=== PATIENT | male | born 1945 | race Caucasian/White ===

== ENCOUNTER → 2024-06-24 13:27 | Outpatient (CLI) | payer OTHER, SELFPAY ==
--- NOTE | 2024-06-24 13:38 | DI.ECHO.S_ITS ---
[place] [facility]+ [facility] : : [address] : : [place] : : [id number] : : Phone: [phone] Echocardiogram Report + + :Name: AKILAH HANDLEY Study Date: 06/24/2024 Height: 67 in : :[facility] ReadingLocation: Weight: 170 lb : : Gender: Male BSA: 1.9 m2 : :: 1945 Age: 78 yrs BP: 129/78 mmHg: :Reason For Study: ISCHEMIC HEART DISEASE : :Ordering Physician: JANNA, : :MAREN Performed By: Alejandro Valdivia : :Referring: MAREN SALDIVAR : + + Interpretation Summary Left ventricular wall thickness is mildly increased. The ejection fraction is estimated to be 65-70%. Grade II diastolic dysfunction. The left atrium is mildly dilated. The right ventricle is normal in size and function. There is mild mitral regurgitation. There is a well-seated, normal functioning bioprosthetic aortic valve with a mild paravalvular leak. Pulmonary artery pressures cannot be estimated because of the lack of a measurable TR jet velocity but the IVC suggests a CVP of around 3 mmHg. Procedure: A two-dimensional transthoracic echocardiogram with color flow and Doppler was performed. The study quality was technically adequate. There is no prior echocardiogram noted for this patient. The patient was in normal sinus rhythm during the exam. Left Ventricle: The left ventricle is normal in size. Left ventricular wall thickness is mildly increased. Left ventricular systolic function is normal. The ejection fraction is estimated to be 65-70%. There are no focal wall motion abnormalities. Diastolic parameters suggest a pseudonormalization pattern, consistent with probable elevated filling pressures. Right Ventricle: The right ventricle is normal in size and function. Atria: The left atrium is mildly dilated. The right atrium is normal in size. There is no Doppler evidence for an atrial septal defect. Mitral Valve: There is mild mitral annular calcification. The mitral valve leaflets appear mildly thickened, but open well. The mitral valve leaflets are moderately calcified. No significant mitral valve stenosis. There is mild mitral regurgitation. Aortic Valve: There is a bioprosthetic aortic valve. The prosthetic aortic valve is well-seated. There is mild perivalvular regurgitation around the prosthetic aortic valve. The peak aortic velocity is 2.2 m/sec. The aortic valve mean gradient is 10 mmHg. Tricuspid Valve: The tricuspid valve leaflets are thin and pliable. There is trace tricuspid regurgitation. Pulmonary artery pressures cannot be estimated because of the lack of a measurable TR jet velocity but the IVC suggests a CVP of around 3 mmHg. Pulmonic Valve: The pulmonic valve is not well seen, but is grossly normal. There is a trace or physiologic amount of pulmonic regurgitation. Great Vessels: The aortic root is not well visualized. The ascending aorta is normal in size. The aortic arch is normal in size. The IVC is of normal diameter and collapses greater than 50% with a sniff. This suggests a low right atrial pressure of 3 mm Hg. Pericardium/ Pleura There is no pericardial effusion. MMode/2D Measurements & Calculations LVIDd: 4.6 cm LVOT diam: 2.1 cm LVIDs: 2.8 cm Ao root diam: 3.0 cm FS: 37.7 % asc Aorta Diam: 3.6 cm IVSd: 1.3 cm Ao Arch Diam (Prox Trans): 2.5 cm LVPWd: 1.5 cm LV sanches. diameter/BSA (cm/m^2): 2.4 LV sys. diameter/BSA (cm/m^2): 1.5 LA A2 area: 24.5 cm2 RA long axis: 5.4 cm LA A4 area: 27.3 cm2 RA area: 15.0 cm2 LA length (vol): 7.4 cm RA vol: 35.1 ml LA vol: 77.1 ml RA : 18.6 ml/m2 LA vol index: 40.9 ml/m2 IVC diam: 1.2 cm RVD1 (basal): 3.3 cm RVD2 (mid): 2.7 cm TAPSE: 1.8 cm Doppler Measurements & Calculations Ao V2 max: 220.4 cm/sec LVOT Max Dano: 122.5 cm/sec Ao V2 mean: 141.4 cm/sec LV V1 max P.0 mmHg Ao max P.4 mmHg LV V1 VTI: 20.8 cm Ao mean P.0 mmHg SYLVIE(I,D): 2.0 cm2 Ao V2 VTI: 36.3 cm SYLVIE(V,D): 2.0 cm2 sev ratio: 0.57 SYLVIE indexed to BSA (cm^2/m^2): 1.1 AI P1/2t: 562.7 msec AI dec slope: 201.9 cm/sec2 MV E max dano: 89.9 cm/sec TR max dano: 206.0 cm/sec MV A max dano: 120.4 cm/sec TR max P.0 mmHg MV E/A: 0.75 Med Peak E' Dano: 3.8 cm/sec E/E' med: 23.9 Lat Peak E' Dano: 4.7 cm/sec E/E' lat: 19.2 E/e' average: 21.5 MV dec time: 0.32 sec MVA(VTI): 2.0 cm2 MV V2 mean: 67.5 cm/sec SV(LVOT): 73.2 ml MV mean P.2 mmHg MV V2 VTI: 37.0 cm Reading Physician:03:07 PM
== END ==
PROVIDERS: Referring Provider Chiropractor; Visit Provider Chiropractor
DX: I08.0 Rheumatic disorders of both mitral and aortic valves (principal); I25.9 Chronic ischemic heart disease, unspecified; Z95.2 Presence of prosthetic heart valve
CPT/HCPCS: 93306